=== PATIENT | male | born 1995 ===

== ENCOUNTER 2021-09-01 19:51 | Emergency (ER) | payer OTHER ==
[~2021-09-01] VITALS: Ht 175.3 cm; Wt 108.9 kg
--- NOTE | 2021-09-01 19:51 | NUR ---
PT BIB [facility] 81 FROM HOME, REPORTED THAT HE SNORTED COCAINE/FENTANYL. PT'S GIRLFRIEND GAVE HIM NARCAN. PT A/O X3, NO SOB OR LABORED BREATHING, AFEBRILE. CLEAR SPEECH, COMPLETE SENTENCES.
--- NOTE | 2021-09-01 19:52 | NUR ---
DR. BROWNE AT BEDSIDE, MSE IN PROGRESS.
[2021-09-01] MEDS ORDERED: IBUPROFEN 600 MG TABLET PO ONE (20:00)
[2021-09-01] MEDS ORDERED: IBUPROFEN 600 MG TABLET ONE (20:04)
[2021-09-01] MEDS ORDERED: NALO4SPR NS (20:14)
--- NOTE | 2021-09-01 21:00 | NUR ---
Patient discharged to home in stable condition. No changes in LOC. Denies any pain/discomfort upon discharge. Written and verbal after care instructions given. Patient verbalizes understanding of instructions. Stressed follow up or return to ER for worsening s/s. Steady gait, picked up by family.
[2021-09-01 21:13] VITALS: BP 126/74
== END 2021-09-01 21:05 | disposition home or self-care (01) ==
LOC: EDBD 19:51 → ER 19:51
DX: T40.2X1A Poisoning by other opioids, accidental (unintentional), initial encounter (principal); R51.9 Headache, unspecified; Y92.89 Other specified places as the place of occurrence of the external cause; F14.90 Cocaine use, unspecified, uncomplicated; F17.210 Nicotine dependence, cigarettes, uncomplicated; Z88.0 Allergy status to penicillin
CPT/HCPCS: A4663